=== PATIENT | female | born 1970 | race Caucasian/White ===

== ENCOUNTER 2018-01-14 09:51 | Outpatient (CLI) | payer OTHER | END 2018-01-14 09:56 | disposition home or self-care (01) | LOC: MAMO-SONO 09:51 | DX: N60.11 Diffuse cystic mastopathy of right breast (principal); N60.12 Diffuse cystic mastopathy of left breast; Z12.31 Encounter for screening mammogram for malignant neoplasm of breast ==

== ENCOUNTER → 2018-01-14 | Outpatient (CLI) | payer OTHER ==
[~2018-01-14] MED LIST: INTESTINEX680 MG PO; OMEPRAZOLE20 MG PO; OXYC1TAB9 PO; PERCOCET 5/3251 TAB PO; SYNTHROID75 MCG PO; XARELTO15 MG PO; XARELTO20 MG; XARELTO20 MG PO
== END | disposition home or self-care (01) ==
LOC: LAB 08:11
DX: E03.8 Other specified hypothyroidism (principal); K29.70 Gastritis, unspecified, without bleeding

== ENCOUNTER 2018-02-10 07:56 | Outpatient (CLI) | payer OTHER | END 2018-02-10 08:02 | disposition home or self-care (01) | LOC: SONOGRAMA 07:56 → MAMO-SONO 08:45 | DX: N64.89 Other specified disorders of breast (principal); E04.1 Nontoxic single thyroid nodule ==

== ENCOUNTER → 2018-02-27 16:06 | Outpatient (CLI) | payer OTHER | END | disposition home or self-care (01) | LOC: LAB 16:06 | DX: N39.0 Urinary tract infection, site not specified (principal); R82.79 Other abnormal findings on microbiological examination of urine ==

== ENCOUNTER 2018-05-20 16:46 | Emergency (ER) | payer OTHER ==
[~2018-05-20] VITALS: Ht 162.6 cm; Wt 90.7 kg
[2018-05-20] MEDS ORDERED: SYNTHROID50 MCG (17:00)
== END 2018-05-20 22:21 | disposition home or self-care (01) ==
LOC: ER 16:46
DX: M79.89 Other specified soft tissue disorders (principal); N39.0 Urinary tract infection, site not specified

== ENCOUNTER → 2018-05-26 | Outpatient (CLI) | payer OTHER ==
[~2018-05-26] MED LIST changes: +BIOGAIA1 TAB; +LAXATIVE5 M1; +PANTOPRAZOLE SO20 MG; +SYNTHROID50 MCG
== END | disposition home or self-care (01) ==
LOC: NUCLEAR 10:30
DX: I87.2 Venous insufficiency (chronic) (peripheral) (principal)

== ENCOUNTER 2018-06-04 12:05 | Emergency (ER) | payer OTHER ==
[~2018-06-04] VITALS: Ht 162.6 cm; Wt 90.7 kg
[~2018-06-04 12:05] MED LIST changes: -BIOGAIA1 TAB; -LAXATIVE5 M1; -PANTOPRAZOLE SO20 MG
[2018-06-04] MEDS ORDERED: PANTOPRAZOLE SO20 MG (12:41)
[2018-06-04] MEDS ORDERED: BIOGAIA1 TAB (12:42)
[2018-06-04] MEDS ORDERED: LAXATIVE5 M1 (12:42)
== END 2018-06-04 18:44 | disposition home or self-care (01) ==
LOC: ER 12:05
DX: K52.9 Noninfective gastroenteritis and colitis, unspecified (principal)

== ENCOUNTER 2018-06-05 16:54 | Outpatient (CLI) | payer OTHER ==
[~2018-06-05 16:54] MED LIST changes: +BIOGAIA1 TAB; +LAXATIVE5 M1; +PANTOPRAZOLE SO20 MG
== END 2018-06-05 16:58 | disposition home or self-care (01) ==
LOC: LAB 16:54
DX: K52.89 Other specified noninfective gastroenteritis and colitis (principal)

== ENCOUNTER 2018-06-08 16:38 | Emergency (ER) | payer OTHER ==
[~2018-06-08] VITALS: Ht 162.6 cm; Wt 90.7 kg
[2018-06-08] MEDS ORDERED: PROTONIX20 MG (17:03)
== END 2018-06-09 16:00 | disposition home or self-care (01) ==
LOC: ER 16:38
DX: K45.8 Other specified abdominal hernia without obstruction or gangrene (principal); K29.70 Gastritis, unspecified, without bleeding; D64.89 Other specified anemias

== ENCOUNTER 2018-07-23 08:44 | Outpatient (CLI) | payer OTHER ==
[~2018-07-23 08:44] MED LIST changes: +PROTONIX20 MG
== END 2018-07-23 08:50 | disposition home or self-care (01) ==
LOC: RAD 08:44
DX: M25.561 Pain in right knee (principal)

== ENCOUNTER 2018-08-12 12:58 | Emergency (ER) | payer OTHER ==
[~2018-08-12] VITALS: Ht 160 cm; Wt 95.3 kg
[2018-08-12] MEDS ORDERED: ASPIR 8181 MG (13:24)
[2018-08-12] MEDS ORDERED: NORFLEX100MG PO (16:03)
[2018-08-12] MEDS ORDERED: KETO10TA2 PO (16:03)
== END 2018-08-12 17:20 | disposition home or self-care (01) ==
LOC: ER 12:58
DX: S80.01XA Contusion of right knee, initial encounter (principal); X58.XXXA Exposure to other specified factors, initial encounter; Y93.89 Activity, other specified; Y92.89 Other specified places as the place of occurrence of the external cause; Y99.8 Other external cause status

== ENCOUNTER 2018-08-14 10:13 | Outpatient (CLI) | payer OTHER ==
[~2018-08-14 10:13] MED LIST changes: +ASPIR 8181 MG; +KETO10TA2 PO; +NORFLEX100MG PO
== END 2018-08-14 10:25 | disposition home or self-care (01) ==
LOC: MRI 10:13
DX: M25.561 Pain in right knee (principal)
CPT/HCPCS: 73718

== ENCOUNTER 2019-06-11 10:24 | Outpatient (CLI) | payer OTHER | END 2019-06-11 10:36 | disposition home or self-care (01) | LOC: LAB 10:24 | DX: E78.49 Other hyperlipidemia (principal); E55.9 Vitamin D deficiency, unspecified; Z00.00 Encounter for general adult medical examination without abnormal findings; I10 Essential (primary) hypertension; D64.89 Other specified anemias; Z12.11 Encounter for screening for malignant neoplasm of colon; E03.8 Other specified hypothyroidism; C18.9 Malignant neoplasm of colon, unspecified ==

== ENCOUNTER 2019-06-15 07:51 | Outpatient (CLI) | payer OTHER | END 2019-06-15 07:55 | disposition home or self-care (01) | LOC: LAB 07:51 | DX: E78.49 Other hyperlipidemia (principal); R73.09 Other abnormal glucose; E55.9 Vitamin D deficiency, unspecified; Z00.00 Encounter for general adult medical examination without abnormal findings; I10 Essential (primary) hypertension; D64.89 Other specified anemias; Z12.11 Encounter for screening for malignant neoplasm of colon; E03.8 Other specified hypothyroidism ==

== ENCOUNTER → 2020-04-20 11:18 | Outpatient (CLI) | payer OTHER | END | disposition home or self-care (01) | LOC: LAB 11:18 | PROVIDERS: ATTEND Internal Medicine | DX: N39.0 Urinary tract infection, site not specified (principal); D50.8 Other iron deficiency anemias; E11.9 Type 2 diabetes mellitus without complications; M06.9 Rheumatoid arthritis, unspecified ==

== ENCOUNTER 2020-04-26 13:40 | Outpatient (CLI) | payer OTHER | END 2020-04-26 13:50 | disposition home or self-care (01) | LOC: LAB 13:40 | PROVIDERS: ATTEND Internal Medicine | DX: N39.0 Urinary tract infection, site not specified (principal); D50.8 Other iron deficiency anemias; M06.89 Other specified rheumatoid arthritis, multiple sites; E11.9 Type 2 diabetes mellitus without complications ==

== ENCOUNTER 2020-05-29 12:10 | Day surgery (SDC) | payer OTHER | END 2020-05-29 16:45 | disposition home or self-care (01) | LOC: AMB-ENDOS 12:10 | PROVIDERS: ATTEND Surgery | DX: K62.89 Other specified diseases of anus and rectum (principal); Z20.828 Contact with and (suspected) exposure to other viral communicable diseases ==

== ENCOUNTER 2021-07-11 11:03 | Emergency (ER) | payer OTHER ==
[~2021-07-11] VITALS: Ht 162.6 cm; Wt 90.7 kg
[2021-07-11] MEDS ORDERED: KETO10TA2 PO (13:08)
== END 2021-07-11 13:18 | disposition home or self-care (01) ==
LOC: ER 11:03
DX: M77.32 Calcaneal spur, left foot (principal); W18.39XA Other fall on same level, initial encounter; Y93.89 Activity, other specified; Y92.012 Bathroom of single-family (private) house as the place of occurrence of the external cause

== ENCOUNTER 2025-06-13 16:09 | Emergency (ER) | payer OTHER ==
[~2025-06-13] VITALS: Ht 162.6 cm; Wt 113.4 kg
[2025-06-13] MEDS ORDERED: ALBUTEROL SULFATE 3 ML/2.5 MG AMPUL.NEB IH STA (18:35)
[2025-06-13] MEDS ORDERED: BUDESONIDE 0.5 MG/2 ML AMPUL.NEB IH STA (18:35)
[2025-06-13 18:57] LABS: BASO % 0.5 % (0.1-1.2); EOS # 0.11 (0.04-0.54); EOS % 2.0 % (0.7-7.0); LYMPH # 1.81 (1.18-3.74); LYMPH % 32.6 % (19.3-53.1); MEAN PLATELET VOLUME 10.40 fl (9.4-12.4); MONO # 0.92 (0.24-0.82); NEUT # 2.67 (1.56-6.13); NEUT % 48.1 % (34.0-71.1); RED CELL DISTRIBUTION WIDTH 13.1 % (11.6-14.4)
[2025-06-13 18:58] LABS: MONO % 16.6 % (4.7-12.5)
[2025-06-13 19:14] LABS: COVID-19 AG NEGATIVE (NEGATIVE)
[2025-06-13] MEDS ORDERED: OSEL75CA PO (20:00)
[2025-06-13] MEDS ORDERED: OSELTAMIVIR PHOSPHATE 75 MG CAPSULE PO STA (20:04)
== END 2025-06-13 20:16 | disposition home or self-care (01) ==
LOC: ER 16:09
PROVIDERS: Emergency Medicine
DX: J10.1 Influenza due to other identified influenza virus with other respiratory manifestations (principal); H66.93 Otitis media, unspecified, bilateral; R05.9 Cough, unspecified; R06.02 Shortness of breath; Z20.822 Contact with and (suspected) exposure to COVID-19